=== PATIENT | female | born 1990 | race Caucasian/White ===

== ENCOUNTER 2020-02-18 18:12 | Emergency (ER) | payer OTHER ==
[2020-02-18] MEDS ORDERED: ONDANSETRON HCL INJ/PF 4 MG/2 ML SDV IV ONE (19:10)
[2020-02-18] MEDS ORDERED: NORMAL SALINE 1000 ML 1,000 ML IV ONE (19:10)
--- NOTE | 2020-02-18 19:19 | ER Document Report ---
ED GI/ - General Chief Complaint: Abdominal Pain Stated Complaint: ABDOMINAL PAIN Time Seen by Provider: 02/18/20 18:59 Notes: CHIEF COMPLAINT: Abdominal pain and vomiting today HPI: 29-year-old female presenting with abdominal pain in the epigastric region with multiple episodes of vomiting today. Woke up throwing up. Denies . Denies fever. Does report prior history of cholecystectomy states this feels similar to when she had her gallbladder out. Patient felt fine yesterday. ROS: See HPI - all other systems were reviewed and are otherwise negative Constitutional: no fever Eyes: no drainage, no blurred vision ENT: no runny nose, no sore throat Cardiovascular: no chest pain Resp: no SOB, no cough GI: + vomiting, no diarrhea, + abdominal pain : no dysuria Integumentary: no rash Allergy: no hives Musculoskeletal: no extremity pain or swelling Neurological: no numbness/tingling, no weakness MEDICATIONS: I agree with the patient medications as charted by the RN. ALLERGIES: I agree with the allergies as charted by the RN. PAST MEDICAL HISTORY/PAST SURGICAL HISTORY: Reviewed and agree as charted by RN. SOCIAL HISTORY: Reviewed and agree as charted by RN. FAMILY HISTORY: No significant familial comorbid conditions directly related to patient complaint EXAM: Reviewed vital signs as charted by RN. CONSTITUTIONAL: Alert and oriented and responds appropriately to questions. Slightly ill-appearing; well-nourished HEAD: Normocephalic; atraumatic EYES: PERRL; Conjunctivae clear, sclerae non-icteric ENT: normal nose; no rhinorrhea; moist mucous membranes; pharynx without lesions noted, no uvula edema or deviation, no tonsillar hypertrophy, phonation normal NECK: Supple without meningismus; non-tender; no cervical lymphadenopathy, no masses CARD: RRR; no murmurs, no clicks, no rubs, no gallops; symmetric distal pulses RESP: Normal chest excursion without splinting or tachypnea; breath sounds clear and equal bilaterally; no wheezes, no rhonchi, no rales, pulse oximetry 97% on room air not hypoxic ABD/GI: Normal bowel sounds; non-distended; soft, mild tenderness in the epigastric region on palpation, no rebound, no guarding; no palpable organomegaly or masses. BACK: The back appears normal and is non-tender to palpation, there is no CVA tenderness EXT: Normal ROM in all joints; non-tender to palpation; no cyanosis, no effusions, no edema SKIN: Pale color for age and race; warm; dry; good turgor; no acute lesions noted NEURO: Moves all extremities equally; Motor and sensory function intact PSYCH: The patient's mood and manner are appropriate. Grooming and personal hygiene are appropriate. MDM: 29-year-old female actively vomiting in the room presenting with multiple episodes of vomiting today. Reports some epigastric pain which she describes as a tightness which she relates to the vomiting. Has absolutely no lower abdominal pain on palpation. Will obtain baseline screening labs hydrate the patient treat nausea vomiting and plan to reassess. Will hold on imaging pendi ng reassessment and lab work and will plan for serial exams - Related Data Allergies/Adverse Reactions: No Known Allergies Allergy (Unverified 02/18/20 21:00) Past Medical History - Social History Smoking Status: Unknown if Ever Smoked Family History: Reviewed & Not Pertinent Physical Exam - Vital signs Vitals: Temp Pulse Resp BP Pulse Ox 98.1 F 76 20 108/76 100 02/18/20 18:17 02/18/20 18:17 02/18/20 18:17 02/18/20 18:17 02/18/20 18:17 Course - Re-evaluation Re-evalutation: 02/18/20 20:28 Patient states nausea is better requesting something for pain. She is positive for marijuana I suspect cyclic vomiting syndrome. We do not have prior history on her care. Minimal leukocytosis. Other lab work does not support acute multiple episodes of vomiting her CO2 is not low she is not significantly dehydrated by lab work. Will give Toradol and capsaicin cream to abdomen and reassess 02/18/20 21:33 Patient states that she feels much better at this time tolerating oral fluids. Nausea has completely resolved, pain is completely resolved. Likely cyclic vomiting although patient does have a COVID test pending and will be a person under investigation. Abdomen is benign on reexam no indication for additional imaging. We did discuss the patient's lab work and marijuana use. I suspect this is likely causing some of her symptoms. - Vital Signs Vital signs: Temp Pulse Resp BP Pulse Ox 98.1 F 76 20 108/76 100 02/18/20 19:11 02/18/20 18:17 02/18/20 18:17 02/18/20 18:17 02/18/20 18:17 - Laboratory Result Diagrams: 02/18/20 19:25 02/18/20 19:25 Laboratory results interpreted by me: 02/18/20 02/18/20 02/18/20 19:25 19:25 19:25 WBC 12.2 H Lymph % (Auto) 5.4 L [place] % (Auto) 0.7 L Absolute Neuts (auto) 11.5 H Seg Neutrophils % 93.6 H Glucose 139 H Albumin 5.2 H Urine Protein >=500 H Urine Ketones 80 H Urine Ascorbic Acid 40 H Discharge - Discharge Clinical Impression: Cyclical vomiting, Person under investigation for COVID-19 Condition: Stable Disposition: HOME, SELF-CARE Additional Instructions: Avoid marijuana use. Take Zofran for nausea vomiting, hydrate well at home, return for recurrent abdominal pain or vomiting. You are considered a person under investigation for COVID-19 at this time, self quarantine at home for the next 2 to 5 days or until you have a negative test result. Test results usually take 2 to 5 days and you should hear from someone at the hospital about your results Prescriptions: Ondansetron [Zofran Odt 4 mg Tablet] 1 - 2 tab PO Q4H PRN #15 tab.rapdis PRN Reason: For Nausea/Vomiting
[2020-02-18 19:44] LABS: ABSOLUTE LYMPHOCYTES (AUTO) 0.7 10^3/uL (0.5-4.7); ABSOLUTE MONOCYTES (AUTO) 0.1 10^3/uL (0.1-1.4); ABSOLUTE NEUT (AUTO) 11.5 10^3/uL (1.7-8.2); BASOPHILS % (AUTO) 0.3 % (0-2); HEMATOCRIT 40.2 % (36.0-47.0); HEMOGLOBIN 13.8 g/dL (12.0-15.5); LYMPHOCYTES % (AUTO) 5.4 % (13-45); MEAN CORPUSCULAR HEMOGLOBIN 29.7 pg (27.0-33.4); MEAN CORPUSCULAR HGB CONC 34.3 g/dL (32.0-36.0); MEAN CORPUSCULAR VOLUME 87 fl (80-97); MONOCYTES % (AUTO) 0.7 % (3-13); PLATELET COUNT 312 10^3/uL (150-450); RED BLOOD COUNT 4.65 10^6/uL (3.72-5.28); RED CELL DISTRIBUTION WIDTH 13.2 % (11.5-14.0); SEGMENTED NEUTROPHILS % (AUTO) 93.6 % (42-78); TOTAL CELLS COUNTED % (AUTO) 100 %; WHITE BLOOD COUNT 12.2 10^3/uL (4.0-10.5)
[2020-02-18 20:01] LABS: ALBUMIN 5.2 g/dL (3.5-5.0); ALKALINE PHOSPHATASE 61 U/L (38-126); ANION GAP 12 (5-19); ASPARTATE AMINO TRANSFERASE 17 U/L (14-36); BILIRUBIN,DIRECT 0.2 mg/dL (0.0-0.4); BILIRUBIN,TOTAL 0.7 mg/dL (0.2-1.3); BLOOD UREA NITROGEN 10 mg/dL (7-20); CARBON DIOXIDE 22 mmol/L (22-30); CHLORIDE 105 mmol/L (98-107); GLUCOSE 139 mg/dL (75-110); POTASSIUM 4.6 mmol/L (3.6-5.0); TOTAL PROTEIN 8.1 g/dL (6.3-8.2)
[2020-02-18 20:03] LABS: APPEARANCE,URINE SLIGHTLY-CLOUDY; BILIRUBIN,URINE NEGATIVE (NEGATIVE); COLOR,URINE YELLOW; GLUCOSE, URINE NEGATIVE (NEGATIVE); KETONES,URINE 80 mg/dL (NEGATIVE); LEUKOCYTE ESTERASE,URINE NEGATIVE (NEGATIVE); NITRITE,URINE NEGATIVE (NEGATIVE); PROTEIN,URINE >=500 mg/dL (NEGATIVE); URINE SPECIFIC GRAVITY 1.029; UROBILINOGEN,URINE NEGATIVE mg/dL (<2.0)
[2020-02-18 20:15] LABS: URINE AMPHETAMINES SCREEN NEGATIVE; URINE BARBITURATES SCREEN NEGATIVE; URINE BENZODIAZEPINES SCREEN NEGATIVE; URINE COCAINE SCREEN NEGATIVE; URINE METHADONE SCREEN NEGATIVE; URINE PHENCYCLIDINE SCREEN NEGATIVE
[2020-02-18 20:26] LABS: URINE MARIJUANA (THC) SCREEN UNCONFIRMED POSITIVE
[2020-02-18] MEDS ORDERED: KETOROLAC TROMETHAMINE INJ/PF 30 MG/1 ML SDV IV ONE (20:27)
[2020-02-18] MEDS ORDERED: CAPSAICIN HP 0.075% CREAM 60 GM TP ONE (20:28)
[2020-02-18] MEDS ORDERED: CAPSAICIN 0.025% CREAM 60 GM ONE (20:40)
[2020-02-18] MEDS ORDERED: CAPSAICIN 0.025% CREAM 60 GM TP ONE (21:05)
[2020-02-18 21:51] VITALS: BP 112/69
== END 2020-02-18 21:52 | disposition home or self-care (01) ==
LOC: ER 18:12
DX: R11.15 Cyclical vomiting syndrome unrelated to migraine (principal); R10.13 Epigastric pain; Z20.828 Contact with and (suspected) exposure to other viral communicable diseases
CPT/HCPCS: 99284; 96361; 96374; 96375; 36415; 83690; 85025; 87635; 81025; 80053; 81001; 80307; J3490; J1885; J2405; J7030; C9803

== ENCOUNTER 2020-02-19 11:10 | Observation (INO) | payer OTHER ==
[~2020-02-19 11:10] MED LIST: DEXAMETHASONE SOD PHOSPHATE INJ 4 MG/1 ML VIAL ONE; DIPHENHYDRAMINE HCL 50 MG/ML VIAL ONE; GLYCOPYRROLATE 1 MG/5 ML VIAL ONE; KETOROLAC TROMETHAMINE 60 MG/2 ML SDV ONE; LIDOCAINE 2% INJ-PF (20 MG/ML) 2 ML AMPUL ONE; NEOSTIGMINE METHYLSULFATE 10 MG/10 ML VIAL ONE; ONDANSETRON HCL INJ/PF 4 MG/2 ML SDV ONE; ROCURONIUM BROMIDE INJ 50 MG/5 ML VIAL IV ONE
--- NOTE | 2020-02-19 14:21 | ER Document Report ---
ED General - General Chief Complaint: Vomiting Stated Complaint: ABDOMINAL PAIN/VOMITING Notes: 29-year-old female with past medical history of cholecystectomy presenting today with worsening abdominal pain and nausea and vomiting since yesterday. She was seen in the emergency department yesterday for nausea and vomiting and abdominal pain diagnosed with cyclic vomiting syndrome and sent home with Tenisha.. Her symptoms returned this morning with worsening abdominal pain and continued nausea and vomiting. She has had approximately 5 episodes of nonbloody emesis. Also reports has had 2 episodes of diarrhea since being in the emergency department. Has not been able to eat or drink anything. Unable to keep fluids down. Denies any fevers or chills. Last menstrual period was 2 months ago. States today she is not because her had a vasectomy. - Related Data Allergies/Adverse Reactions: No Known Allergies Allergy (Unverified 02/18/20 21:00) Past Medical History - Social History Smoking Status: Unknown if Ever Smoked Frequency of alcohol use: None Drug Abuse: None Family History: Reviewed & Not Pertinent Neurological Medical History: Reports: Hx Migraine - hemiplegic Psychiatric Medical History: Reports: Hx Bipolar Disorder Past Surgical History: Reports: Hx Cholecystectomy Review of Systems - Review of Systems Constitutional: No symptoms reported EENT: No symptoms reported Cardiovascular: No symptoms reported Respiratory: No symptoms reported Gastrointestinal: See HPI Genitourinary: No symptoms reported Female Genitourinary: No symptoms reported Musculoskeletal: No symptoms reported Skin: No symptoms reported Hematologic/Lymphatic: No symptoms reported Neurological/Psychological: No symptoms reported Physical Exam - Vital signs Vitals: Temp Pulse Resp BP Pulse Ox 97.7 F 72 16 119/71 100 02/19/20 11:44 02/19/20 11:44 02/19/20 11:44 02/19/20 11:44 02/19/20 11:44 Interpretation: Normal - Notes Notes: Adult General: GENERAL: Alert, interacts well. No acute distress HEAD: Normocephalic, atraumatic EYES: Extraocular movements intact. ENT: Airway patent. Nares patent. NECK: Full range of motion. Supple. Trachea midline. No lymphadenopathy. LUNGS: Clear to auscultation bilaterally, no wheezes, rales, or rhonchi. No respiratory distress. Nontender chest wall. HEART: Regular rate and rhythm. No murmurs, rubs or gallops. ABDOMEN: Soft, tender to palpation along epigastric region and bilateral lower quadrants. Nondistended. (-) [place] sign. Bowel sounds present in all 4 quadrants. No rebound, guarding or masses. GENITOURINARY: Deferred EXTREMITIES: Moves all 4 extremities spontaneously. BACK: No cervical, thoracic, lumbar midline tenderness. Moves all extremities with full range of motion. NEUROLOGICAL: Alert and oriented x3. Normal speech. Strength 5/ 5 in all extremities. PSYCH: Normal affect, normal mood. SKIN: Warm, dry, normal turgor. No rashes or lesions noted. Course - Re-evaluation Re-evalutation: 02/19/20 14:20 Patient with continued nausea and vomiting suspect that it is due to cyclic vomiting syndrome. Will not repeat tox screen as her last was positive for marijuana use. Other symptoms have worsened I will go ahead and CT her abdomen and pelvis. Her white count has also elevated to 17.6. 02/19/20 18:19 Received a phone call from radiologist Dr. Camejo who reports that patient has acute appendicitis. Dr. Holley was paged. Dr. Sierra informed him of the patient as I was seeing the patient in the room. Recommends patient NPO and rapid covid. Dr. Holley will admit the patient. I have notified patient of the findings of acute appendicitis and is in agreeance with admission. - Vital Signs Vital signs: Temp Pulse Resp BP Pulse Ox 97.9 F 69 16 109/69 96 02/19/20 22:01 02/19/20 22:16 02/19/20 22:16 02/19/20 22:16 02/19/20 22:16 - Laboratory Result Diagrams: 02/19/20 15:12 02/19/20 15:12 Laboratory results interpreted by me: 02/19/20 15:12 WBC 17.6 H Lymph % (Auto) 9.4 L Absolute Neuts (auto) 15.1 H Seg Neutrophils % 85.4 H Discharge - Discharge Clinical Impression: Appendicitis Condition: Stable Disposition: ADMITTED INPATIENT Admitting Provider: Surgicalist Unit Admitted: Surgical Floor
[2020-02-19] MEDS ORDERED: NORMAL SALINE 1000 ML 1,000 ML IV ONE (14:22)
[2020-02-19] MEDS ORDERED: ONDANSETRON HCL INJ/PF 4 MG/2 ML SDV IV ONE ×2 (14:22→16:38)
[2020-02-19 15:30] LABS: ABSOLUTE LYMPHOCYTES (AUTO) 1.7 10^3/uL (0.5-4.7); ABSOLUTE MONOCYTES (AUTO) 0.9 10^3/uL (0.1-1.4); ABSOLUTE NEUT (AUTO) 15.1 10^3/uL (1.7-8.2); HEMATOCRIT 38.2 % (36.0-47.0); HEMOGLOBIN 13.4 g/dL (12.0-15.5); LYMPHOCYTES % (AUTO) 9.4 % (13-45); MEAN CORPUSCULAR HEMOGLOBIN 30.2 pg (27.0-33.4); MEAN CORPUSCULAR HGB CONC 35.2 g/dL (32.0-36.0); MEAN CORPUSCULAR VOLUME 86 fl (80-97); MONOCYTES % (AUTO) 5.2 % (3-13); PLATELET COUNT 276 10^3/uL (150-450); RED BLOOD COUNT 4.45 10^6/uL (3.72-5.28); RED CELL DISTRIBUTION WIDTH 13.1 % (11.5-14.0); SEGMENTED NEUTROPHILS % (AUTO) 85.4 % (42-78); TOTAL CELLS COUNTED % (AUTO) 100 %; WHITE BLOOD COUNT 17.6 10^3/uL (4.0-10.5)
[2020-02-19 15:47] LABS: ALBUMIN 4.7 g/dL (3.5-5.0); ALKALINE PHOSPHATASE 55 U/L (38-126); ANION GAP 11 (5-19); ASPARTATE AMINO TRANSFERASE 15 U/L (14-36); BILIRUBIN,DIRECT 0.2 mg/dL (0.0-0.4); BLOOD UREA NITROGEN 10 mg/dL (7-20); CALCIUM 9.4 mg/dL (8.4-10.2); CARBON DIOXIDE 24 mmol/L (22-30); CHLORIDE 104 mmol/L (98-107); GLUCOSE 102 mg/dL (75-110); TOTAL PROTEIN 7.3 g/dL (6.3-8.2)
--- NOTE | 2020-02-19 18:18 | RADIOLOGY REPORT (SQ) ---
EXAM DESCRIPTION: CT ABD/PELVIS WITH IV ORAL IMAGES COMPLETED DATE/TIME: 02/19/2020 4:53 pm REASON FOR STUDY: abdominal pain, continued n/v. Right lower quadrant abdominal pain. Previous cho lecystectomy. COMPARISON: None. TECHNIQUE: CT scan of the abdomen and pelvis performed using helical scanning technique with dynamic intravenous contrast injection. No oral contrast. Images reviewed with lung, soft tissue, and bone windows. Reconstructed coronal and sagittal MPR images reviewed. Delayed images for evaluation of the urinary system also acquired. All images stored on PACS. All CT scanners at this facility use dose modulation, iterative reconstruction, and/or weight based d osing when appropriate to reduce radiation dose to as low as reasonably achievable (ALARA). [facility]: Dose Right [facility]: CareDose [facility]: Dose Right [facility]: Teradose 4D [facility]: Last Size CONTRAST TYPE AND DOSE: contrast/concentration: Isovue 350.00 mmol/ml; Total Contrast Delivered: 59. 0 ml; Total Saline Delivered: 64.9 ml RENAL FUNCTION: GFR > 60. RADIATION DOSE: CT Rad equipment meets quality standard of care and radiation dose reduction techniq ues were employed. CTDIvol: 4.8 - 5.0 mGy. DLP: 494 mGy-cm.. LIMITATIONS: None. FINDINGS: LOWER CHEST: No significant findings. No nodules or infiltrates. LIVER: Liver has normal size and contour. There is focal fatty infiltration at the falciform ligamen t. No suspicious hepatic mass. Hepatic and portal veins are patent. SPLEEN: Normal size. No focal lesions. PANCREAS: No masses. No significant calcifications. No adjacent inflammation or peripancreatic fluid collections. Pancreatic duct not dilated. GALLBLADDER: Surgically absent. ADRENAL GLANDS: No significant masses or asymmetry. RIGHT KIDNEY AND URETER: No solid masses. No significant calcifications. No hydronephrosis or hyd roureter. LEFT KIDNEY AND URETER: No solid masses. No significant calcifications. No hydronephrosis or hydr oureter. AORTA AND VESSELS: No aneurysm. No dissection. Renal arteries, SMA, celiac without stenosis. RETROPERITONEUM: No retroperitoneal adenopathy, hemorrhage or masses. BOWEL AND PERITONEAL CAVITY: Small amount of ascites in the pelvis. There is no bowel obstruction. No bowel wall thickening. APPENDIX: The appendix is enlarged with appendix embolus and abnormal enhancement measuring up to 1.2 cm diameter. Surrounding inflammatory change. No focal abscess or pneumoperitoneum. PELVIS: Uterus and ovaries have normal size. Urinary bladder is decompressed. Small amount of free fluid in the pelvic cul-de-sac. ABDOMINAL WALL: No masses. No hernias. BONES: No significant or acute findings. OTHER: No other significant finding. IMPRESSION: 1. Acute appendicitis. No perforation or peritoneal abscess. COMMENT: Findings were called to Bijan Foster on 02/19/2020 at 1810 hours. TECHNICAL DOCUMENTATION: JOB ID: [id number] Quality ID # [id number]: Final reports with documentation of one or more dose reduction techniques (e.g., Au tomated exposure control, adjustment of the mA and/or kV according to patient size, use of iterative reconstruction technique) 2010 [employer]- All Rights Reserved Reading location - IP/workstation name: [email or web address]
--- NOTE | 2020-02-19 19:44 | PDOC H&P ---
History of Present Illness Patient complains of: Abdominal pain nausea and vomiting History of Present Illness: EDGAR JACKSON is a 29 year old female Patient presents emergency department for the second in a row via ground rescue complaining of abdominal pain, nausea and vomiting. She was seen in the ER yes terday, found to have diffuse abdominal tenderness, and a leukocytosis of 12,000. She was diagnosed with cyclic emesis and was sent home on antiemetics. Patient continued to have abdominal pain, nausea vomiting with the pain localizing to the lower abdomen right lower quadrant. She was found to have some right lower quadrant tenderness, and a CT scan of the abdomen and pelvis with oral contrast demonstrated a dilated appendix with periappendiceal inflammation consistent with acute appendicitis. Surgery was consulted, patient was evaluated, felt to be an appropriate candidate for hospitalization and interval appendectomy. Past Medical History Past Medical History: Bipolar disorder, anxiety Neurological Medical History: Reports: Migraine - hemiplegic Psychiatric Medical History: Reports: Bipolar Disorder Past Surgical History Past Surgical History: Reports: Cholecystectomy, Other - Cholecystectomy requiring stent placement and stent removal treatment of Social History Information Source: Patient Smoking Status: Unknown if Ever Smoked Electronic Cigarette use?: No Frequency of Alcohol Use: Rare Hx Recreational Drug Use: No Family History Family History: None, Reviewed & Not Pertinent Parental Family History Reviewed: No Children Family History Reviewed: No Sibling(s) Family History Reviewed.: No Medication/Allergy Home Medications: Ondansetron [Zofran Odt 4 mg Tablet] 1 - 2 tab PO Q4H PRN #15 tab.rapdis 02/18/20 Allergies/Adverse Reactions: No Known Allergies Allergy (Unverified 02/18/20 21:00) Review of Systems Constitutional: PRESENT: as per HPI Eyes: ABSENT: visual disturbances Ears: ABSENT: hearing changes Cardiovascular: ABSENT: chest pain, dyspnea on exertion, edema, orthropnea, palp itations Respiratory: ABSENT: cough, hemoptysis Gastrointestinal: PRESENT: as per HPI Genitourinary: ABSENT: dysuria, hematuria Musculoskeletal: ABSENT: joint swelling Integumentary: ABSENT: rash, wounds Psychiatric: PRESENT: anxiety Endocrine: PRESENT: other - Patient has a history of irregular periods secondary to side effects of anxiolytic medications Physical Exam Vital Signs: Temp Pulse Resp BP Pulse Ox 98.2 F 65 20 112/72 100 02/19/20 18:19 02/19/20 18:19 02/19/20 18:19 02/19/20 18:19 02/19/20 18:19 Intake & Output 02/18/20 02/19/20 02/20/20 06:59 06:59 06:59 Intake Total 1000 Balance 1000 Weight 52.163 kg General appearance: PRESENT: no acute distress Head exam: PRESENT: normocephalic Eye exam: PRESENT: EOMI Mouth exam: PRESENT: dry mucosa Neck exam: PRESENT: full ROM Respiratory exam: PRESENT: chest wall tenderness Cardiovascular exam: PRESENT: RRR Pulses: PRESENT: normal carotid pulses, normal radial pulses, normal femoral pulses GI/Abdominal exam: PRESENT: diminished bowel sounds, other - Tender right lower quadrant to deep palpation but no rigidity or guarding Rectal exam: PRESENT: deferred Extremities exam: PRESENT: full ROM Musculoskeletal exam: PRESENT: full ROM Neurological exam: PRESENT: oriented to person, oriented to place, oriented to time, oriented to situation Psychiatric exam: PRESENT: appropriate affect Focused psych exam: PRESENT: other - Mildly anxious Skin exam: PRESENT: dry Results Laboratory Results: 02/19/20 15:12 02/19/20 15:12 02/19/20 02/19/20 15:12 15:12 WBC 17.6 H RBC 4.45 Hgb 13.4 Hct 38.2 MCV 86 MCH 30.2 MCHC 35.2 RDW 13.1 Plt Count 276 Seg Neutrophils % 85.4 H Sodium 138.5 Potassium 4.0 Chloride 104 Carbon Dioxide 24 Anion Gap 11 BUN 10 Creatinine 0.54 Est GFR ( Amer) > 60 Glucose 102 Calcium 9.4 Total Bilirubin 1.0 AST 15 Alkaline Phosphatase 55 Total Protein 7.3 Albumin 4.7 Lipase 43.3 Impressions: Abdomen/Pelvis CT 02/19/20 00:00 IMPRESSION: 1. Acute appendicitis. No perforation or peritoneal abscess. Assessment & Plan - Diagnosis (1) Appendicitis Is this a current diagnosis for this admission?: Yes Plan: Impression: Acute appendicitis based on clinical presentation, physical exam findings leukocytosis and CT scan abnormality described above. No evidence of sepsis. Plan: 1. Admit to surgical service, keep n.p.o., IV fluids, and intravenous antibiotics 2. Plan for laparoscopic possible open appendectomy, Dr. Sanderss, general anesthesia, tonight. Risk benefits and alternatives to planned procedure explained to the patient including bleeding, infection, bowel injury and need for additional surgery. Patient expresses her understanding and agrees to proceed. 3. We will check rapid COVID test tonight. (2) History of bipolar disorder Is this a current diagnosis for this admission?: Yes (3) Status post laparoscopic cholecystectomy Is this a current diagnosis for this admission?: Yes - Time Time Spent: 30 to 50 Minutes Critical Time spent with patient: Less than 15 minutes Medications reviewed and adjusted accordingly: Yes Anticipated Discharge Disposition: Home, Self Care Anticipated Discharge Timeframe: within 24 hours
[2020-02-19] MEDS ORDERED: FENTANYL CITRATE INJ/PF 100 MCG/2 ML AMPUL ONE (20:31)
[2020-02-19] MEDS ORDERED: MIDAZOLAM 2 MG/2 ML INJ ONE (20:31)
[2020-02-19] MEDS ORDERED: PROPOFOL INJ 200 MG/20 ML VIAL IV ONE (20:31)
[2020-02-19] MEDS ORDERED: EPHEDRINE SULFATE INJ 50 MG/1 ML AMPULE ONE (20:31)
[2020-02-19] MEDS ORDERED: BUPIVACAINE HCL 0.25 % INJ/PF (2.5 MG/1 ML) 30 ML VIAL ONE (20:41)
[2020-02-19] MEDS ORDERED: CLINDAMYCIN PHOSPHATE INJ 300 MG/2 ML SDV ONE (21:08)
[2020-02-19 21:09] LABS: APPEARANCE,URINE CLEAR; BILIRUBIN,URINE NEGATIVE (NEGATIVE); COLOR,URINE STRAW; GLUCOSE, URINE NEGATIVE (NEGATIVE); KETONES,URINE 80 mg/dL (NEGATIVE); LEUKOCYTE ESTERASE,URINE NEGATIVE (NEGATIVE); NITRITE,URINE NEGATIVE (NEGATIVE); PROTEIN,URINE NEGATIVE (NEGATIVE); UROBILINOGEN,URINE NEGATIVE mg/dL (<2.0)
[2020-02-19 21:25] LABS: URINE SPECIFIC GRAVITY > 1.060
[2020-02-19] MEDS ORDERED: OXYCODONE-ACETAMINOPHEN 5-325 MG TABLET PO PRN ×3 (21:55→22:05)
[2020-02-19] MEDS ORDERED: KETOROLAC TROMETHAMINE INJ/PF 30 MG/1 ML SDV IV PRN (21:55)
[2020-02-19] MEDS ORDERED: ONDANSETRON HCL INJ/PF 4 MG/2 ML SDV IV PRN ×2 (21:55→22:05)
--- NOTE | 2020-02-19 22:01 | Operative Report ---
Operative Report DATE OF SURGERY: 02/19/20 PREOPERATIVE DIAGNOSIS: Acute appendicitis POSTOPERATIVE DIAGNOSIS: Same OPERATION: Laparoscopic appendectomy SURGEON: DAKOTAH BRISENO ANESTHESIA: GA TISSUE REMOVED OR ALTERED: 1 appendix COMPLICATIONS: None ESTIMATED BLOOD LOSS: Minimal INTRAOPERATIVE FINDINGS: See below PROCEDURE: The patient was taken to the preop holding area the main operating room where general anesthesia was induced. The abdomen was exposed arms abducted the abdomen prepped and draped in sterile fashion Surgical plan and surgical timeout conducted Markings were made on the skin for 3 port laparoscopy. Skin was anesthetized above the umbilicus, in the suprapubic area and on the left lower quadrant. A transverse incision was made over the umbilicus, tissue divided with knife, and a Veress needle inserted into the peritoneal cavity uneventfully. Pneumoperitoneum was established. Veress needle was removed, 5 mm ports inserted and a 5 mm flexible viewing scope was inserted. Under direct visualization 2 additional ports were placed 1 5 mm suprapubic and a 12 mm left lower quadrant all under direct visualization without evidence of visceral or vascular injury. The appendix was acutely inflamed and stuck into the pelvis. It was milked out of the pelvis uneventfully. The peritoneal reflection inferior and lateral to the cecum was divided with hook cautery. We now elevated the appendix into the free peritoneal space. The dissector was used to open the mesoappendix at the base of the appendix. We now the appendix which it adhesed itself to the terminal ileum using the dissector. We now brought onto the field a 35 mm blue load [place] stapler and fired it across both the mesoappendix which was quite narrow and the base of the appendix with a single deployment. The appendix was now placed in an Endobag and brought the patient to the left lower quadrant port site uneventfully and sent to pathology. We checked the staple line for bleeding and there was none. We performed minimal irrigation of the pelvis to remove some cloudy fluid. There was no foul smell, or purulence anywhere else in the peritoneal cavity. At this point felt the operation was complete. Sponge and needle counts are correct. All ports removed under direct visualization, pneumoperitoneum evacuated, wounds closed with 0 Vicryl 3-0 Vicryl benzoin and Steri-Strips. Patient tolerated procedure well, extubated, taken to recovery room in stable condition.
[2020-02-19] MEDS ORDERED: MORPHINE SULFATE 10 MG/ML INJ IV PRN (22:05)
[2020-02-19] MEDS ORDERED: DIPHENHYDRAMINE HCL 50 MG/ML VIAL IV PRN (22:05)
[2020-02-19] MEDS ORDERED: FENTANYL CITRATE INJ/PF 100 MCG/2 ML AMPUL IV PRN ×3 (22:05)
[2020-02-19] MEDS ORDERED: MEPERIDINE HCL/PF INJ 25 MG/1 ML DISP.SYRIN IV PRN (22:05)
[2020-02-19] MEDS ORDERED: PROMETHAZINE HCL INJ 25 MG/1 ML VIAL IV PRN ×2 (22:05)
[2020-02-19] MEDS: RINGERS SOLUTION,LACTATED 1,000 ML IV PRN (23:35)
[2020-02-19] MEDS: ACETAMINOPHEN 1,000 MG/100 ML RTUPB IV SCH (23:42)
[2020-02-20] MEDS ORDERED: ACETAMINOPHEN INJ/PF 1000 MG/100 ML SDV IV SCH
[2020-02-20] MEDS: RINGERS SOLUTION,LACTATED 1,000 ML IV PRN (05:10)
[2020-02-20] MEDS: ACETAMINOPHEN 1,000 MG/100 ML RTUPB IV SCH ×2 (06:42→11:33)
[2020-02-20 11:04] VITALS: BP 112/72
--- NOTE | 2020-02-22 09:01 | Discharge Summary ---
Discharge Summary (SDC) - Discharge Final Diagnosis: acute appendicitis Date of Surgery: 02/19/20 Discharge Date: 02/20/20 Condition: Good Treatment or Instructions: ok to return home via airline tomorrow pt will f/u [facility] primary md if necessary ok to shower. Prescriptions: Oxycodone HCl/Acetaminophen [Percocet 5-325 mg Tablet] 1 tab PO ASDIR PRN #15 tab PRN Reason: Oxycodone HCl/Acetaminophen [Percocet 5-325 mg Tablet] 1 tab PO Q6HP PRN #15 tab PRN Reason: Discharge Diet: As Tolerated Discharge Activity: Activity As Tolerated, No Lifting Over 10 Pounds Report the Following to Your Physician Immediately: Nausea, Vomiting, Increase in Pain
== END 2020-02-20 11:46 | disposition home or self-care (01) ==
LOC: ER 11:10 → EH 20:02 → INTOOBSV 20:02 → 4S 22:35
PROVIDERS: ADMIT Surgery; ATTEND Surgery
DX: K35.80 Unspecified acute appendicitis (principal); Z03.818 Encounter for observation for suspected exposure to other biological agents ruled out; Z90.49 Acquired absence of other specified parts of digestive tract; F31.9 Bipolar disorder, unspecified; F41.9 Anxiety disorder, unspecified; Z79.899 Other long term (current) drug therapy
CPT/HCPCS: 44970; 96376; 99285; 96361; 96374; 36415; 83690; 84703; 85025; 87635; 80053; 81001; 88304 ×2; 74177; 99140; 00840; G0378 ×2; J2250; J3490 ×4; J1100; J1200; J1885; J3010; J2710; J2405; J7030; J7120 ×2; J2704; J0131 ×2; C9803; 840